=== PATIENT | female | born 1945 | race Caucasian/White ===

== ENCOUNTER 2020-03-27 16:09 | Inpatient (IN) | payer MEDICARE ==
[~2020-03-27] VITALS: Ht 157.5 cm; Wt 52.0 kg
[2020-03-27] MEDS ORDERED: CLOP75TA52 PO (16:44)
[2020-03-27] MEDS ORDERED: LEVO75TA5 PO (16:45)
[2020-03-27] MEDS ORDERED: CITA20TA9 PO (16:45)
[2020-03-27] MEDS ORDERED: BUPR-86 PO (16:46)
[2020-03-27] MEDS ORDERED: HYDROmorphone 1 MG/ML, 1ML INJ ONE ×2 (17:46→20:48)
[2020-03-27] MEDS ORDERED: ONDANSETRON 2MG/ML, 2ML ONE (17:47)
[2020-03-27] MEDS ORDERED: ONDANSETRON 2MG/ML, 2ML IVPush ONE (18:00)
[2020-03-27 18:29] LABS: BASOPHILS % (AUTO) 0 % (0-1); EOSINOPHILS % (AUTO) 0 % (1-7); LYMPHOCYTES % (AUTO) 6 % (22-44); MEAN CORPUSCULAR HEMOGLOBIN 31.3 pg (27.0-34.8); MEAN CORPUSCULAR HGB CONC 33.7 g/dL (32.4-35.8); MONOCYTES % (AUTO) 5 % (2-9); NEUTROPHILS % (AUTO) 89 % (42-75); PLATELET COUNT 318 x10^3/uL (130-400); RED BLOOD COUNT 4.17 x10^6/uL (3.82-5.3); RED CELL DISTRIBUTION WIDTH 13.5 % (9.6-15.2)
[2020-03-27] MEDS ORDERED: SODIUM CHLORIDE FLUSH 10ML SYR IVF ONE (18:30)
[2020-03-27 18:40] LABS: MD NO
[2020-03-27 18:41] LABS: ALANINE AMINOTRANSFERASE 38 U/L (12-78); ANION GAP 4 mmol/L (5-15); CALCIUM 9.1 mg/dL (8.5-10.1); CHLORIDE 106 mmol/L (98-107); CREATININE 1.09 mg/dL (0.55-1.02)
[2020-03-27 18:46] LABS: ALKALINE PHOSPHATASE 140 U/L (45-117); BILIRUBIN,TOTAL 0.4 mg/dL (0.2-1.0); TOTAL PROTEIN 6.4 g/dL (6.4-8.2); TROPONIN I < 0.015 ng/mL (0.000-0.045)
[2020-03-27] MEDS: HYDROmorphone 1 MG/ML, 1ML INJ IVPush PRN ×2 (18:52→20:52)
[2020-03-27 19:04] LABS: INTERNATIONAL NORMALIZED RATIO 1.01 (0.93-1.1); PROTHROMBIN TIME 10.7 Seconds (9.6-11.5)
--- NOTE | 2020-03-27 19:10 | NUR ---
LATE ENTRY DUE TO PATIENT CARE: THIS IS A 74 YO FEMALE BIB [facility] FROM HOME FOR MGLF RELATED TO LOW BLOOD SUGAR. PER [facility], " THERE WAS A GLUCOMETER ON HER DESK BY WHERE SHE FELL ALONG WITH UNOPENED SNACKS, THE GLUCOMETER READ 44". BGL 57 WHEN [facility] ON SCENE, GAVE 15MG ORAL GLUCOSE, BROUGHT UP TO 102. PATIENT C/O LEFT HIP PAIN AND LAC TO MIDDLE OF FOREHEAD. FOUND AT 88% ON RA. HX STROKE WITH RIGHT SIDED DEFICITS, NORM IS A&OX2 WITH SLOW RESPONSE SINCE STROKE. PATIENT STATES STROKE WAS IN 2005. STATES PATIENT TAKES PLAVIX. 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 IN ROOM
--- NOTE | 2020-03-27 19:11 | NUR ---
REPORT TO FRANCOISE MAR. PLAN OF CARE DISCUSSED
--- NOTE | 2020-03-27 19:17 | NUR ---
REPORT RECEIVED FROM FRANCOISE ESPINAL. ASSUMED CARE OF PT. PT RESTING ON GURNEY, ON HER RIGHT SIDE. PT STILL C/O PAIN TO BILATERAL HIPS. SHE IS DROWSY BUT ORIENTED. SLOW TO ANSWER QUESTIONS BUT ANSWERS APPROPRIATELY. FSBS RESASSED DUE TO PT NOT EATING ANYTHING SINCE ORAL GLUCOSE ADMINISTRATION. FSBS 160. ALL VITALS STABLE AT THIS TIME. NSR ON THE MONITOR AT A RATE OF 98. NO ECTOPY NOTED. AWARE OF STRAIGHT CATH UA ORDER. UNABLE TO COMPELTE AT THIS TIME DUE TO SEVERE PAIN. WILL DISCUSS WITH PROVIDER. XRAYS LIKELY TO BE REDONE. AT BEDSIDE. WILL CONTINUE TO MONITOR
--- NOTE | 2020-03-27 19:35 | NUR ---
PER ERP, UA IS NOT URGENT AT THIS TIME.
--- NOTE | 2020-03-27 20:57 | NUR ---
PT MEDICATED FOR PAIN PER [facility]. 5 RIGHTS ADDRESSED. PT OFFERED PILLOWS TO MAKE HER MORE COMFORTABLE. PT DECLINED. ALL VITALS STABLE. FAMILY AT BEDSIDE. AWAITING TO GIVE REPORT, WILL CONTINUE TO MONITOR.
--- NOTE | 2020-03-27 21:42 | NUR ---
REPORT TO JEROMY
[2020-03-27 22:11] VITALS: BP 135/78
[2020-03-28] MEDS ORDERED: LIDODERM 5% PATCH TD PRN (02:00)
[2020-03-28] MEDS ORDERED: ONDANSETRON 2MG/ML, 2ML IVPush PRN (02:00)
[2020-03-28] MEDS ORDERED: LABETALOL 5MG/ML, 20ML IVPush PRN (02:00)
[2020-03-28] MEDS ORDERED: SODIUM CHLORIDE 0.9% 1,000 ML IV SCH (02:00)
[2020-03-28] MEDS ORDERED: DOCUSATE 100 MG CAPSULE PO PRN (02:00)
[2020-03-28] MEDS ORDERED: ACETAMINOPHEN 325 MG TABLET PO PRN (02:00)
[2020-03-28 02:16] VITALS: BP 88/56
[2020-03-28] MEDS ORDERED: LIDODERM REMOVE PATCH NOTE XX PRN (02:30)
[2020-03-28 02:56] VITALS: BP 121/67
[2020-03-28] MEDS: KETOROLAC 30 MG/1 ML IV PRN (03:01)
[2020-03-28] MEDS: LEVOTHYROXINE 75 MCG TABLET PO SCH (06:00)
[2020-03-28 06:02] LABS: MICROSCOPIC INDICATED
[2020-03-28 07:16] VITALS: BP 108/65
[2020-03-28] MEDS: CEFTRIAXONE PMX 1GM/50ML 50 ML IV SCH (08:23)
[2020-03-28] MEDS: BUPROPION SR 150 MG TABLET PO SCH (08:24)
[2020-03-28] MEDS: CITALOPRAM 20 MG TABLET PO SCH (08:24)
[2020-03-28 14:14] VITALS: BP 112/67
[2020-03-28] MEDS: HYDROcodone/APAP 5/325 TABLET PO PRN (17:04)
[2020-03-28] MEDS ORDERED: ARTIFICIAL TEARS 15 DROP/ML BOTTLE EACHEYE PRN (18:00)
[2020-03-28 20:05] VITALS: BP 130/72
[2020-03-28] MEDS: MELATONIN 5 MG TABLET PO PRN (22:01)
[2020-03-28] MEDS: INSULIN LISPRO 100 UNITS/ML, PEN SQ-INSULIN SCH (22:01)
[2020-03-29 02:03] VITALS: BP 110/56
[2020-03-29] MEDS: LEVOTHYROXINE 75 MCG TABLET PO SCH (06:37)
[2020-03-29 07:15] LABS: BASOPHILS % (AUTO) 0 % (0-1); EOSINOPHILS % (AUTO) 4 % (1-7); LYMPHOCYTES % (AUTO) 12 % (22-44); MEAN CORPUSCULAR HEMOGLOBIN 31.7 pg (27.0-34.8); MEAN CORPUSCULAR HGB CONC 33.7 g/dL (32.4-35.8); MEAN PLATELET VOLUME 8.3 fL (7.4-10.4); MONOCYTES % (AUTO) 7 % (2-9); NEUTROPHILS % (AUTO) 77 % (42-75); PLATELET COUNT 246 x10^3/uL (130-400); RED BLOOD COUNT 3.82 x10^6/uL (3.82-5.3); RED CELL DISTRIBUTION WIDTH 13.7 % (9.6-15.2)
[2020-03-29 07:23] VITALS: BP 135/76
[2020-03-29 07:26] LABS: ANION GAP 10 mmol/L (5-15); CALCIUM 8.7 mg/dL (8.5-10.1); CHLORIDE 105 mmol/L (98-107)
[2020-03-29 07:27] LABS: CREATININE 1.13 mg/dL (0.55-1.02)
[2020-03-29 07:37] LABS: MD NO
[2020-03-29] MEDS: CITALOPRAM 20 MG TABLET PO SCH (08:27)
[2020-03-29] MEDS: CEFTRIAXONE PMX 1GM/50ML 50 ML IV SCH (08:27)
[2020-03-29] MEDS: INSULIN LISPRO 100 UNITS/ML, PEN SQ-INSULIN SCH ×4 (08:27→20:08)
[2020-03-29] MEDS: BUPROPION SR 150 MG TABLET PO SCH (08:28)
[2020-03-29] MEDS: HEPARIN 5,000 UNITS/ML, 1ML SQ SCH ×2 (11:42→23:40)
[2020-03-29 12:20] VITALS: BP 118/70
[2020-03-29] MEDS: HYDROcodone/APAP 5/325 TABLET PO PRN ×3 (16:19→23:40)
[2020-03-29 21:18] VITALS: BP 133/78
[2020-03-30 03:30] VITALS: BP 117/71
[2020-03-30] MEDS: HYDROcodone/APAP 5/325 TABLET PO PRN (04:03)
[2020-03-30] MEDS: LEVOTHYROXINE 75 MCG TABLET PO SCH (06:17)
[2020-03-30] MEDS: INSULIN LISPRO 100 UNITS/ML, PEN SQ-INSULIN SCH ×4 (06:41→22:20)
[2020-03-30 07:18] VITALS: BP 111/63
[2020-03-30] MEDS: CEFTRIAXONE PMX 1GM/50ML 50 ML IV SCH (07:55)
[2020-03-30 08:23] LABS: ANION GAP 18 mmol/L (5-15); CALCIUM 8.4 mg/dL (8.5-10.1); CHLORIDE 106 mmol/L (98-107); CREATININE 1.23 mg/dL (0.55-1.02)
[2020-03-30] MEDS: CITALOPRAM 20 MG TABLET PO SCH (09:07)
[2020-03-30] MEDS: BUPROPION SR 150 MG TABLET PO SCH (09:07)
[2020-03-30] MEDS: HEPARIN 5,000 UNITS/ML, 1ML SQ SCH ×2 (11:19→22:21)
[2020-03-30 12:43] VITALS: BP 104/61
[2020-03-30 13:07] LABS: PH, VENOUS 7.432 pH (7.320-7.420)
[2020-03-30 13:17] LABS: ANION GAP 7 mmol/L (5-15); CALCIUM 9.3 mg/dL (8.5-10.1); CHLORIDE 108 mmol/L (98-107); CREATININE 1.29 mg/dL (0.55-1.02)
[2020-03-30] MEDS ORDERED: LACTATED RINGERS 1,000 ML IV SCH ×2 (13:30)
[2020-03-30] MEDS ORDERED: MAGNESIUM SULFATE PMX 2GM/50ML 50 ML IV ONE (16:30)
[2020-03-30 20:50] VITALS: BP 126/65
[2020-03-30] MEDS: MELATONIN 5 MG TABLET PO PRN (22:19)
[2020-03-30] MEDS: KETOROLAC 30 MG/1 ML IV PRN (22:20)
[2020-03-31 01:57] VITALS: BP 115/62
[2020-03-31] MEDS: LEVOTHYROXINE 75 MCG TABLET PO SCH (06:11)
[2020-03-31] MEDS: KETOROLAC 30 MG/1 ML IV PRN ×2 (06:12→19:42)
[2020-03-31 06:49] VITALS: BP 148/74
[2020-03-31 07:17] LABS: BASOPHILS % (AUTO) 1 % (0-1); EOSINOPHILS % (AUTO) 6 % (1-7); LYMPHOCYTES % (AUTO) 13 % (22-44); MEAN CORPUSCULAR HGB CONC 33.8 g/dL (32.4-35.8); MEAN PLATELET VOLUME 8.2 fL (7.4-10.4); MONOCYTES % (AUTO) 8 % (2-9); NEUTROPHILS % (AUTO) 73 % (42-75); PLATELET COUNT 288 x10^3/uL (130-400); RED CELL DISTRIBUTION WIDTH 13.8 % (9.6-15.2)
[2020-03-31 07:32] LABS: ALBUMIN 2.5 g/dL (3.4-5.0); ANION GAP 12 mmol/L (5-15); CHLORIDE 105 mmol/L (98-107)
[2020-03-31 07:37] LABS: MD NO
[2020-03-31 07:40] LABS: ALANINE AMINOTRANSFERASE 17 U/L (12-78); ALKALINE PHOSPHATASE 112 U/L (45-117); BILIRUBIN,TOTAL 0.6 mg/dL (0.2-1.0); CALCIUM 8.4 mg/dL (8.5-10.1); CREATININE 1.12 mg/dL (0.55-1.02); TOTAL PROTEIN 5.8 g/dL (6.4-8.2)
[2020-03-31] MEDS: INSULIN LISPRO 100 UNITS/ML, PEN SQ-INSULIN SCH ×3 (08:17→17:27)
[2020-03-31] MEDS ORDERED: LACTATED RINGERS 1,000 ML IVBOLUS ONE (08:30)
[2020-03-31] MEDS: BUPROPION SR 150 MG TABLET PO SCH (09:00)
[2020-03-31] MEDS: CITALOPRAM 20 MG TABLET PO SCH (09:00)
[2020-03-31] MEDS: CEFTRIAXONE PMX 1GM/50ML 50 ML IV SCH (09:10)
[2020-03-31 10:53] LABS: ANION GAP 16 mmol/L (5-15); CALCIUM 8.4 mg/dL (8.5-10.1); CHLORIDE 109 mmol/L (98-107); CREATININE 1.22 mg/dL (0.55-1.02)
[2020-03-31] MEDS: HEPARIN 5,000 UNITS/ML, 1ML SQ SCH (12:00)
[2020-03-31] MEDS ORDERED: SODIUM CHLORIDE 0.9% 1,000ML IVBOLUS ONE (12:30)
[2020-03-31 13:04] VITALS: BP 122/70
[2020-03-31 14:40] LABS: ANION GAP 9 mmol/L (5-15); CALCIUM 8.5 mg/dL (8.5-10.1); CHLORIDE 112 mmol/L (98-107); CREATININE 1.04 mg/dL (0.55-1.02)
[2020-03-31] MEDS ORDERED: INSU100I11 SQ-INSULIN (15:54)
[2020-03-31] MEDS ORDERED: INSU100I13 SQ-INSULIN (15:54)
[2020-03-31] MEDS ORDERED: ERTA1VIA4 IV (15:54)
[2020-03-31] MEDS ORDERED: ERTAPENEM 1 GM in SODIUM CHLORIDE 0.9% 50 ML IV SCH (16:00)
[2020-03-31] MEDS ORDERED: HYDR-3240 PO ×2 (18:08)
[2020-03-31] MEDS: HYDROcodone/APAP 5/325 TABLET PO PRN (19:41)
[2020-03-31 19:45] VITALS: BP 133/79
[2020-03-31] MEDS ORDERED: INSULIN GLARGINE 100 UNITS/ML, PEN SQ-INSULIN SCH (21:00)
== END 2020-03-31 19:52 | DRG 536 ==
LOC: ED 20:09 → EDIP 20:15 → ED 20:21 → 4NE 22:08
PROVIDERS: ADMIT Internal Medicine; ATTEND Hospitalist
PROC: 0T9B70Z Drainage of Bladder with Drainage Device, Via Natural or Artificial Opening (ICD-10-PCS; principal; 2020-03-28)
DX: S32.402A Unspecified fracture of left acetabulum, initial encounter for closed fracture (principal); N39.0 Urinary tract infection, site not specified; E87.2 Acidosis; S06.0X9A Concussion with loss of consciousness of unspecified duration, initial encounter; E03.9 Hypothyroidism, unspecified; E11.649 Type 2 diabetes mellitus with hypoglycemia without coma; E11.65 Type 2 diabetes mellitus with hyperglycemia; M19.90 Unspecified osteoarthritis, unspecified site; F03.90 Unspecified dementia, unspecified severity, without behavioral disturbance, psychotic disturbance, mood disturbance, and anxiety; M41.9 Scoliosis, unspecified; M81.0 Age-related osteoporosis without current pathological fracture; Z96.641 Presence of right artificial hip joint; W18.39XA Other fall on same level, initial encounter; Y92.009 Unspecified place in unspecified non-institutional (private) residence as the place of occurrence of the external cause; Z79.4 Long term (current) use of insulin; Z83.3 Family history of diabetes mellitus; Z86.73 Personal history of transient ischemic attack (TIA), and cerebral infarction without residual deficits; Y93.89 Activity, other specified; Y99.8 Other external cause status; Z88.2 Allergy status to sulfonamides
CPT/HCPCS: 36415; 70450; 71045; 72125; 80048; 80053; 81001; 82803; 82962; 83036; 83735; 84100; 84484; 85025; 85610; 85730; 87077; 87086; 87186; 93005; 96374; 96375; 96376; G0378; J0696; J1170; J1335; J1644; J1885; J2405; J1815; J3475; J7030; J7120